=== PATIENT | female | born 1985 | race Caucasian/White ===

== ENCOUNTER 2018-08-21 23:14 | Emergency (ER) | payer SELFPAY ==
[~2018-08-21] VITALS: Ht 162.6 cm; Wt 61.4 kg
[2018-08-21 23:18] VITALS: Ht 162.6 cm; Wt 61.4 kg
[2018-08-21] MEDS ORDERED: NEURONTIN 300300 MG (23:20)
[2018-08-21] MEDS ORDERED: HYSINGLA ER20 MG (23:20)
[2018-08-21] MEDS ORDERED: OXYCONTIN10 MG (23:20)
[2018-08-22 00:44] LABS: APPEARANCE CLEAR (CLEAR); BILIRUBIN NEGATIVE (NEGATIVE); COLOR DK YELLOW (YELLOW); GLUCOSE NEGATIVE (NEGATIVE); KETONE MODERATE mg/dL (NEGATIVE); NITRITE NEGATIVE (NEGATIVE); PROTEIN NEGATIVE (NEGATIVE); UROBILINOGEN NORMAL (NORMAL)
[2018-08-22 00:51] LABS: UDS - AMPHET NEGATIVE QUAL (NEGATIVE); UDS - BARB NEGATIVE QUAL (NEGATIVE); UDS - BENZO NEGATIVE QUAL (NEGATIVE); UDS - COCAINE NEGATIVE QUAL (NEGATIVE); UDS - OPIATE POSITIVE QUAL (NEGATIVE); UDS - PCP NEGATIVE QUAL (NEGATIVE); UDS - THC POSITIVE QUAL (NEGATIVE)
[2018-08-22 03:59] VITALS: BP 120/72
== END 2018-08-22 04:00 | disposition home or self-care (01) ==
LOC: D.ER 23:14
PROVIDERS: Family Medicine
DX: O20.0 Threatened abortion (principal); Z3A.14 14 weeks gestation of pregnancy; R10.2 Pelvic and perineal pain